=== PATIENT | male | born 1950 | race Caucasian/White ===

== ENCOUNTER 2020-08-06 07:53 | Observation (INO) | payer MEDICARE ==
[~2020-08-06] VITALS: Ht 185.4 cm; Wt 98.3 kg
[2020-08-06] MEDS ORDERED: MECLIZINE 12.5 MG TABLET. PO ONE (08:00)
--- NOTE | 2020-08-06 08:09 | EKG ---
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
[2020-08-06 08:18] LABS: BASO # 0.1 x10^3/uL (0.0-0.2); BASO % 1 % (0-3); EOS # 0.7 x10^3/uL (0.0-0.7); EOS % 11 % (0-3); HEMATOCRIT 40.1 % (39.0-53.0); HEMOGLOBIN 13.7 g/dL (13.0-17.5); LYMPH # 1.2 x10^3/uL (1.0-4.8); LYMPH % 21 % (24-48); MEAN CORPUSCULAR HEMOGLOBIN 34 pg (25-35); MEAN CORPUSCULAR HGB CONC 34 g/dL (31-37); MEAN CORPUSCULAR VOLUME 99 fL (79-100); MONO # 0.5 x10^3/uL (0.0-1.1); MONO % 8 % (0-9); NEUT # 3.4 x10^3uL (1.8-7.7); NEUT % 58 % (31-73); PLATELET COUNT 243 x10^3/uL (140-400); RED BLOOD COUNT 4.05 x10^6/uL (4.30-5.70); RED CELL DISTRIBUTION WIDTH 13.1 % (11.5-14.5); WHITE BLOOD COUNT 5.9 x10^3/uL (4.0-11.0)
--- NOTE | 2020-08-06 08:21 | PHYS DOC ---
Past History Past Medical History: Cancer, High Cholesterol Additional Past Medical Histor: 59 spots of skin cancer removed. Past Surgical History: Other Additional Past Surgical Histo: cataracts, hernia repair, bilateral carpal tunnel Alcohol Use: Occasionally Adult General Chief Complaint Chief Complaint: DIZZY/LIGHT HEADED HPI HPI Patient is a 70yo male presenting via EMS for dizziness. Onset was this morning right after waking up. Reports rolling over and sitting up in bed when he felt extremely dizzy and reported the room was spinning. This sensation made him sweat, nauseas, and patient reports have numerous episodes of non-bloody non- bilious emesis ever since. Opening his eyes makes worse, closing his eyes and laying still makes better. He has never had this before. No recent sick contacts, travel, URI symptoms, history of vertigo, changes in motor/sensory or neuro function. Reports taking daily statin medication only, no tobacco, ETOH or illicit drug use. Review of Systems Review of Systems Fourteen body systems of review of systems have been reviewed. See HPI for pertinent positives and negative responses, other santiago all other systems are negative, non-pertinent or non-contributory Current Medications Current Medications Current Medications Medications (Trade) Dose Ordered Sig/Concetta Start Time Stop Time Status Last Admin Dose Admin Meclizine HCl (Antivert) 25 mg 1X ONCE 08/06/20 08:00 08/06/20 08:01 UNV 08/06/20 08:19 25 MG Allergies Allergies Allergies Coded Allergies Type Severity Reaction Last Updated Verified No Known Allergies Allergy Unknown 08/06/20 Yes Physical Exam Physical Exam Constitutional: Well developed, well nourished, closing eyes and appears uncomfortable, actively vomiting on ER arrival HENT: Normocephalic, atraumatic, bilateral external ears normal, oropharynx dry, no oral exudates, nose normal. Eyes: PERRLA, EOMI, conjunctiva normal, no discharge. Neck: Normal range of motion, no tenderness, supple, no stridor. Cardiovascular: Heart rate regular, sinus rhythm, no murmurs rubs or gallops Lungs & Thorax: Bilateral breath sounds clear to auscultation Abdomen: Bowel sounds normal, soft, no tenderness, no masses, no pulsatile masses. Nonsurgical abdomen, no peritoneal signs Skin: Warm, dry, no erythema, no rash. Back: No tenderness, no CVA tenderness. Extremities: No tenderness, no cyanosis, no clubbing, ROM intact, no edema. Neurologic: Alert and oriented X 3, Horizontal nystagmus otherwise CN 2-12 intact, normal motor & sensory function, no focal deficits noted. Normal finger to nose, rotational movements of head and rolling over recreated symptoms Psychologic: Affect normal, judgement normal, mood normal. Current Patient Data Vital Signs Vital Signs Date Time Temp Pulse Resp B/P (MAP) Pulse Ox O2 Delivery O2 Flow Rate FiO2 08/06/20 08:08 97.7 68 15 117/69 (85) 96 Room Air Lab Results Laboratory Tests Test 08/06/20 08:00 White Blood Count 5.9 x10^3/uL Red Blood Count 4.05 x10^6/uL Hemoglobin 13.7 g/dL Hematocrit 40.1 % Mean Corpuscular Volume 99 fL Mean Corpuscular Hemoglobin 34 pg Mean Corpuscular Hemoglobin Concent 34 g/dL Red Cell Distribution Width 13.1 % Platelet Count 243 x10^3/uL Neutrophils (%) (Auto) 58 % Lymphocytes (%) (Auto) 21 % Monocytes (%) (Auto) 8 % Eosinophils (%) (Auto) 11 % Basophils (%) (Auto) 1 % Neutrophils # (Auto) 3.4 x10^3uL Lymphocytes # (Auto) 1.2 x10^3/uL Monocytes # (Auto) 0.5 x10^3/uL Eosinophils # (Auto) 0.7 x10^3/uL Basophils # (Auto) 0.1 x10^3/uL Sodium Level 142 mmol/L Potassium Level 3.8 mmol/L Chloride Level 104 mmol/L Carbon Dioxide Level 28 mmol/L Anion Gap 10 Blood Urea Nitrogen 11 mg/dL Creatinine 1.0 mg/dL Estimated GFR (Cockcroft-Gault) 74.1 Glucose Level 191 mg/dL Calcium Level 8.5 mg/dL Troponin I Quantitative < 0.017 ng/mL Current Medications Medications (Trade) Dose Ordered Sig/Concetta Route PRN Reason Start Time Stop Time Status Last Admin Dose Admin Meclizine HCl (Antivert) 25 mg 1X ONCE PO 08/06/20 08:00 08/06/20 08:32 DC 08/06/20 08:19 Metoclopramide HCl (Reglan Vial) 10 mg 1X ONCE IVP 08/06/20 09:15 08/06/20 09:21 DC 08/06/20 09:42 Sodium Chloride 1,000 ml @ 1,000 mls/hr 1X ONCE IV 08/06/20 09:15 08/06/20 10:14 DC 08/06/20 09:42 Lorazepam (Ativan Inj) 0.5 mg 1X ONCE IVP 08/06/20 09:15 08/06/20 09:21 DC 08/06/20 09:42 EKG EKG EKG ordered and interpreted by myself at 0808 hrs. as sinus rhythm at 66 bpm, unremarkable intervals, no axis deviation, no acute ischemic findings, no STEMI Radiology/Procedures Radiology/Procedures XR CHEST 1V INDICATION: DIZZY. N/V/D . COMPARISON STUDY: None. FINDINGS: Lungs: Normal lung volume. No pulmonary mass or consolidation. The trac heobronchial tree and hilar structures are normal. Pleura: No pleural effusion or pneumothorax. Heart and Mediastinum: The cardiomediastinal silhouette is normal. The great vessels of the thorax are normal. Bones and Soft Tissues: The bones and soft tissues are within normal limits. IMPRESSION: No acute cardiopulmonary process. Electronically signed by: Chris Srivastava MD (08/06/2020 8:47 AM) [id number] ///////////////////////// CT HEAD/BRAIN WO Date: 08/06/2020 7:57 AM Clinical Indication: DIZZY WITH HORIZONTAL NYSTAGMUS / Spl. Instructions: / History: Comparison: None. Technique: 5 mm axial tomographic images were obtained of the head without contrast. These were viewed on brain and bone windows. One or more of the following dose reduction techniques were utilized: Automated exposure control (AEC), Adjustment of mA and/or kV according to patient size, Use of iterative reconstruction technique such as ASiR, CT scan done according to ALARA and image gently/image wisely Findings: The brain parenchyma is normal in attenuation. No intra- or extra-axial mass or fluid collection. No acute hemorrhage. The ventricles are normal in size, shape, and morphology. The wilkes-white matter junction is normal. The subarachnoid cisterns are patent. The visualized paranasal sinuses are normal. The visualized portions of the orbits and globes are normal. The mastoid air cells are clear. The weatherization field technician topogram shows no lytic lesion or fracture. Impression: No acute intracranial process. Electronically signed by: Chris Srivastava MD (08/06/2020 8:31 AM) [id number] Heart Score C/O Chest Pain: No HEART Score for Chest Pain: HEART Score for Chest Pain Response (Comments) Value History Slighlty/Non-Suspicious 0 ECG Normal 0 Age > 65 2 Risk Factors 1 or 2 Risk Factors 1 Troponin < Normal Limit 0 Total 3 Risk Factors: Risk Factors: DM, Current or recent (<one month) smoker, HTN, HLP, family history of CAD, obesity. Risk Scores: Risk Factors: DM, Current or recent (<one month) smoker, HTN, HLP, family history of CAD, obesity. Course & Med Decision Making Course & Med Decision Making VSS. HPI and PE concerning for symptomatic vertigo ER workup obtained and overall non-concerning. Patient improved with ER int ervention given and by end of visit was able to open eyes with resolution of nystagmus but failed attempted ambulation Patient and fearful of falls and continued symptoms if discharged. Hospitalist contacted and case discussed, Dr. Leos agreed need for admission and accepted patient under his care. Patient and updated on plan of care for hospital admission for continued care, they were amenable. All questions and concerns addressed prior to admission This patient required critical care. Due to the fact that the patient required a significant amount of one on one physician patient contact time, ordering and review of studies, arranging urgent treatment with development of a management plan, evaluation of patients response to treatment with frequent reassessments, and discussions with other providers this patient required critical care time 45 mins Critical care time was indicated due to the inherent instability and/or potential for instability in this patient. The critical care time that is allocated to this patient is above and beyond any time spent on any other billable procedures performed on this patient. Dragon Disclaimer Dragon Disclaimer This electronic medical record was generated, in whole or in part, using a voice recognition dictation system. Departure Departure: Impression: Primary Impression: Vertigo Disposition: ADMITTED INPATIENT Admitting Physician: Luis Alberto Leos Condition: STABLE Referrals: OMARI VILLASENOR (PCP) TRENA SAGASTUME DO Aug 06, 2020 08:21
[2020-08-06 08:24] LABS: CALCIUM 8.5 mg/dL (8.5-10.1); GFR 74.1; POTASSIUM 3.8 mmol/L (3.5-5.1)
--- NOTE | 2020-08-06 08:33 | RAD ---
CT HEAD/BRAIN WO Date: 08/06/2020 7:57 AM Clinical Indication: DIZZY WITH HORIZONTAL NYSTAGMUS / Spl. Instructions: / History: Comparison: None. Technique: 5 mm axial tomographic images were obtained of the head without contrast. These were view ed on brain and bone windows. One or more of the following dose reduction techniques were utilized: A utomated exposure control (AEC), Adjustment of mA and/or kV according to patient size, Use of iterati ve reconstruction technique such as ASiR, CT scan done according to ALARA and image gently/image santiago ly Findings: The brain parenchyma is normal in attenuation. No intra- or extra-axial mass or fluid collection. No acute hemorrhage. The ventricles are normal in size, shape, and morphology. The wilkes-white matter annemarie ction is normal. The subarachnoid cisterns are patent. The visualized paranasal sinuses are normal. The visualized portions of the orbits and globes are no rmal. The mastoid air cells are clear. The pulp mill supervisor topogram shows no lytic lesion or fracture. Impression: No acute intracranial process. Electronically signed by: Chris Srivastava MD (08/06/2020 8:31 AM) [id number]
--- NOTE | 2020-08-06 08:50 | RAD ---
XR CHEST 1V INDICATION: DIZZY. N/V/D . COMPARISON STUDY: None. FINDINGS: Lungs: Normal lung volume. No pulmonary mass or consolidation. The tracheobronchial tree and hilar st ructures are normal. Pleura: No pleural effusion or pneumothorax. Heart and Mediastinum: The cardiomediastinal silhouette is normal. The great vessels of the thorax ar e normal. Bones and Soft Tissues: The bones and soft tissues are within normal limits. IMPRESSION: No acute cardiopulmonary process. Electronically signed by: Chris Srivastava MD (08/06/2020 8:47 AM) [id number]
[2020-08-06] MEDS ORDERED: METOCLOPRAMIDE HCL 10 MG/2 ML VIAL. IVP ONE (09:15)
[2020-08-06] MEDS ORDERED: IV NORMAL SALINE 1,000ML 1,000 ML IV ONE (09:15)
[2020-08-06] MEDS ORDERED: ONDANSETRON PF 4 MG/2 ML VIAL. IVP PRN (11:15)
[2020-08-06] MEDS ORDERED: ACETAMINOPHEN 325 MG TABLET PO PRN (11:15)
[2020-08-06 11:40] VITALS: BP 130/77
--- NOTE | 2020-08-06 12:22 | NUR ---
The patient, BRIGETTE GEE, 70 y/o, M admitted by YONAS FINK MD, was given written information regarding hospital policies, unit procedures and contact persons. Valuables were checked and VS taken, please see chart.
[2020-08-06] MEDS ORDERED: FEXO1TAB31 PO (12:26)
[2020-08-06] MEDS ORDERED: CITA20TA9 PO (12:26)
[2020-08-06] MEDS ORDERED: OMEG-57 PO (12:26)
[2020-08-06] MEDS ORDERED: OMEP40CA7 PO (12:26)
[2020-08-06] MEDS ORDERED: ASPI-630 PO (12:26)
[2020-08-06] MEDS ORDERED: ATOR20TA58 PO (12:26)
[2020-08-06] MEDS ORDERED: MULT-245 PO (12:26)
[2020-08-06] MEDS ORDERED: diazePAM 2 MG TABLET. PO SCH (14:00)
[2020-08-06] MEDS ORDERED: MECLIZINE 12.5 MG TABLET. PO SCH (14:00)
[2020-08-06 15:24] VITALS: BP 104/71
[2020-08-06 19:44] VITALS: BP 137/73
[2020-08-06] MEDS: diazePAM 2 MG TABLET. PO SCH (21:35)
[2020-08-06] MEDS: MECLIZINE 12.5 MG TABLET. PO SCH (21:35)
[2020-08-06 23:05] VITALS: BP 96/69
[2020-08-07] MEDS: diazePAM 2 MG TABLET. PO SCH (05:47)
[2020-08-07] MEDS: MECLIZINE 12.5 MG TABLET. PO SCH ×2 (05:48→11:15)
[2020-08-07 05:55] VITALS: BP 132/80
[2020-08-07] MEDS ORDERED: PANTOPRAZOLE 40 MG TABLET. PO SCH (07:30)
[2020-08-07] MEDS ORDERED: MULTIVITAMIN with MINERAL TABLET. PO SCH (09:00)
[2020-08-07] MEDS ORDERED: PSEUDOEPHEDRINE ER 120 MG TABLET.ER. PO SCH (09:00)
[2020-08-07] MEDS ORDERED: CITALOPRAM 20 MG TABLET. PO SCH (09:00)
[2020-08-07] MEDS ORDERED: CETIRIZINE HCL 10 MG TABLET PO SCH (09:00)
[2020-08-07] MEDS ORDERED: ATORVASTATIN CALCIUM 20 MG TABLET PO SCH (09:00)
[2020-08-07] MEDS ORDERED: OMEGA-3 FATTY ACIDS/FISH OIL 1,000 MG CAPSULE. PO SCH (09:00)
[2020-08-07] MEDS ORDERED: ASPIRIN CHEWABLE 81 MG TABLET. PO SCH (09:00)
--- NOTE | 2020-08-07 09:18 | HP ---
ADMIT DATE: 08/06/2020 ATTENDING PHYSICIAN: Dr. Leos. CHIEF COMPLAINT: Dizziness. HISTORY OF PRESENT ILLNESS: The patient is a pleasant 70-year-old gentleman admitted to the ED with severe vertigo symptoms. He is dizzy, nauseated, and had difficulty walking, the room was spinning out of control. He is very active. He is retired. He is a healthy 70-year-old. He was mowing the lawn on , and spent a lot of time outdoors. He has not had these symptoms in the past, but he does have allergic rhinitis. He is admitted then for further treatment and evaluation of symptomatic vertigo. PAST MEDICAL HISTORY: Significant for hyperlipidemia, multiple basal cell cancers on his face. 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 He also has selective allergies. CURRENT MEDICATIONS: Include: Omeprazole, omega 3 fish oil, multivitamin, Keri, regular; citalopram, Lipitor and aspirin. SOCIAL HISTORY: He is a nondrinker and nonsmoker. ALLERGIES: He has no known drug allergies. 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 FAMILY HISTORY: Mom of complications of alcohol-related disease, age 69. Father of diabetes and renal failure at age 68. SOCIAL HISTORY: He is , lives with his . They have no children. REVIEW OF SYSTEMS: Significant for working outdoors, vertigo, dizziness, nausea and no localizing symptoms. No COVID exposure, fevers, chills. All other systems reviewed and turned to be negative. PHYSICAL EXAMINATION: GENERAL: When I saw him, this is a pleasant middle-aged gentleman. VITAL SIGNS: His initial vital signs showed blood pressure of 137/73. He is afebrile, pulse is 91 and regular, oxygen saturation 95% on room air. HEENT: Head is without trauma. Pupils are reactive. Sclerae nonicteric. Oropharynx clear. Multiple scars on his face from previous skin cancer removal. There are no open sores or lesions. NECK: Supple, no bruits. LUNGS: Otherwise clear. CARDIOVASCULAR: Regular heart tones. No gallops. ABDOMEN: Soft. No guarding or rebound tenderness. EXTREMITIES: Without edema. NEUROLOGIC: Finding focally intact. He is vertiginous. He did have some nystagmus. SKIN: Warm and dry. PERTINENT LABORATORY STUDIES: Hemoglobin 13.7 g/dL, white count 5900. Electrolytes within normal range. Nonfasting blood sugar 190 and his troponin level was nonischemic. The obligatory CT of the head showed no acute intracranial process. His chest x-ray was clear. ASSESSMENT: 1. A 70-year-old gentleman with symptomatic vertigo. 2. History of basal cell cancer. 3. Hyperlipidemia. 4. Associated nausea and vomiting. PLAN: 1. Admit to the inpatient unit. 2. Bed rest with bathroom privileges. 3. Scheduled meclizine. 4. Scheduled intravenous dose diazepam. 5. Continue home meds. KENYETTA DR: Jerry TID: [id number]
[2020-08-07 10:41] VITALS: BP 120/81
--- NOTE | 2020-08-07 11:30 | NUR ---
PATIENT IS DISCHARGED HOME, DISCHARGE INSTRUCTION AND PRESCRIBED MEDS REVIEWED, PATIENT VERBALIZED UNDERSTANDING. PATIENT LEFT ROOM 123 VIA W/C ACCOMP BY THIS RN. PATIENT IS TAKEN HOME BY VIA PERSONAL VEHICLE.
--- NOTE | 2020-08-07 20:52 | DS ---
DATE OF DISCHARGE: 08/07/2020 DATE OF ADMISSION: 08/06/2020 DATE OF DISCHARGE: 08/07/2020 ATTENDING PHYSICIAN: Dr. Leos. FINAL DISCHARGE DIAGNOSES: 1. Acute vertigo. 2. History of basal cell cancer of the face. 3. Hyperlipidemia. 4. Associated nausea and vomiting. HISTORY AND PHYSICAL: The patient is a pleasant 70-year-old gentleman, fairly active. He has been mowing the lawn. He had some allergic rhinitis resulting in vertigo, quite severe in symptom. He was admitted for further treatment and evaluation. PHYSICAL EXAMINATION: Please see my dictated note. PERTINENT LABORATORY AND X-RAY STUDIES: Vital signs were quite within the normal range. Hemoglobin on admission was 13.7 g/dL, white count 5900. Electrolytes, BUN and creatinine are all within normal range. Cardiac enzymes are negative. The obligatory imaging studies were nondiagnostic. COURSE IN THE HOSPITAL: He was admitted, placed at bed rest with bathroom privileges, scheduled meclizine and diazepam ordered. He did better. By the second hospital day when I saw him, he was feeling better. No further nausea. He wanted to go home. He would rather be more comfortable in his own bed. Therefore, I sent him home with meclizine 25 mg p.o. t.i.d. for at least 5 more days and then Valium 2.5 mg p.o. t.i.d. for five more days and continuation of aspirin, Lipitor, Celexa, pseudoephedrine, , omega-3 fish oil, omeprazole dose is unchanged. He will follow up with Ciro Luong as scheduled. The patient was then discharged from our hospital in stable condition with explicit and followup care. YAW/DEBI/KARON DR: Jerry TID: [id number] CC: HERMAN THAKKAR
== END 2020-08-07 11:30 | disposition home or self-care (01) ==
LOC: ER 07:53 → 1 SOUTH 11:05 → INTOOBSV 11:05
PROVIDERS: ADMIT Hospitalist; ATTEND Hospitalist
DX: R42 Dizziness and giddiness (principal); E78.5 Hyperlipidemia, unspecified; R11.2 Nausea with vomiting, unspecified; E78.00 Pure hypercholesterolemia, unspecified; J30.9 Allergic rhinitis, unspecified; Z85.828 Personal history of other malignant neoplasm of skin; Z98.49 Cataract extraction status, unspecified eye; Z79.899 Other long term (current) drug therapy; Z98.890 Other specified postprocedural states
CPT/HCPCS: 36415; 70450; 71045; 80048; 84484; 85025; 93005; 96361; 96374; 96375; 99291; G0378; J2060; J2765; J7030; G0379